=== PATIENT | male | born 1985 | race Hispanic/Latino ===

== ENCOUNTER 2020-02-01 16:29 | Inpatient (IN) | payer OTHER, SELFPAY ==
--- NOTE | ~2020-02-01 | XR_ITS ---
EXAMINATION: XR chest 1V portable 02/01/2020 19:48 INDICATION: Tachycardia. History of CHF. PROCEDURE: AP portable chest COMPARISON: No prior studies for comparison. FINDINGS: The lungs are clear. Cardiomegaly. Defibrillator lead in expected position. There are no pl eural effusions. There is no pneumothorax suspected. IMPRESSION: 1: NO ACUTE CARDIOPULMONARY DISEASE. Reviewed, dictated and finalized at location A.
[2020-02-01 16:46] VITALS: BP 120/80; PULSE 121; RESP 18; TEMP 36.4; O2SAT 100
[2020-02-01 16:53] LABS: Glucose Point of Care > 500 (65-105)
[2020-02-01 16:59] LABS: Basophils Absolute Auto 0.1 K/mm3 (0.0-0.1); Basophils Percent Auto 1.3 % (0.2-1.2); Eosinophils Percent Auto 0.7 % (0-4.4); Hematocrit 46.3 % (42.0-52.0); Hemoglobin 15.5 g/dL (14.0-18.0); Immature Granulocyte Absolute 0.03 K/mm3 (0.00-0.031); Immature Granulocyte Percent A 0.5 % (0-0.5); Lymphocytes Absolute Auto 1.45 K/mm3 (0.9-3.2); Lymphocytes Percent Auto 23.9 % (18.3-44.2); Mean Corpuscular HGB Conc 33.5 g/dl (32-36); Mean Corpuscular Volume 77.7 fl (80-100); Mean Platelet Volume 11.8 fl (7.4-10.4); Monocytes Absolute Auto 0.7 K/mm3 (0.1-0.6); Monocytes Percent Auto 10.9 % (2.6-8.5); Neutrophils Absolute Auto 3.8 K/mm3 (1.3-6.7); Neutrophils Percent Auto 62.7 % (45.5-73.1); Platelet Count Result 280 k/mm3 (150-375); Red Blood Count 5.96 M/mm3 (4.6-6.20); Red Cell Distribution Width 15.4 % (11.5-14.5); White Blood Count 6.1 K/mm3 (4.5-10.0)
[2020-02-01 17:12] LABS: Alanine Aminotransferase 24 U/L (4-50); Albumin Level 4.5 g/dL (3.5-5.1); Alkaline Phosphatase 159 U/L (38-126); Aspartate Amino Transferase 23 U/L (17-59); Bilirubin,Total 0.8 mg/dL (0.2-1.3); Blood Urea Nitrogen 11 mg/dL (9-20); Calcium 9.2 mg/dL (8.4-10.2); Carbon Dioxide 11 mmol/L (22-30); Chloride 98 mmol/L (98-107); Estimated CRCL calculation 134 ml/min; Estimated Glomerular Filt Rate > 60; Glucose 567 mg/dL (75-110); Phosphorus 2.9 mg/dL (2.5-4.5); Potassium 3.8 mmol/L (3.4-5.0); Sodium 131 mmol/L (137-145)
[2020-02-01 17:14] LABS: Add Urine Microscopic? YES; Appearance Urine Clear (Clear); Bilirubin Urine Negative (Negative); Blood Urine 1+ (Negative); Color Urine Colorless (Yellow); Glucose Urine UA 3+ mg/dL (Negative); Ketones Urine 2+ mg/dL (Negative); Leukocyte Esterase Ur Negative LEU/UL (Negative); Mucus Urine Rare /lpf; Nitrate Urine Negative (Negative); Protein Urine 1+ mg/dL (Negative); RBC Urine 0-2 /hpf (0-2); Squamous Epithelial Cell Urine Rare /hpf (Few); Urobilinogen Urine Negative mg/dL (<2.0); WBC Urine 0-3 /hpf
[2020-02-01 17:20] LABS: Specific Grav Ur 1.035 (1.001-1.035)
[2020-02-01 17:37] VITALS: BP 138/98; PULSE 116; RESP 17; O2SAT 99
[2020-02-01 17:57] LABS: Beta-Hydroxybutyrate/Acetoacetate 8.29 mmol/L (0.02-0.27)
[2020-02-01 17:58] LABS: Alveolar/Arterial O2 Gradient 24.2 mmHg; Base Excess ABG -14.4 mEq/l (+/-2.0); Fractional Inspired Oxygen 21 %; HCO3 ABG 10.6 mEq/l (22.0-26.0); Oxygen Saturation ABG 96.6 % (95.0-100.0); Oxyhemoglobin 96.2 % THb (90.0-100.0); PO2 ABG 96.9 mmHg (80.0-100.0); PO2 FiO2 Ratio Arterial Blood 4.61 %; Total Hemoglobin 15.5 g/dL (12.0-18.0)
[2020-02-01 18:01] LABS: Device ROOM AIR; Modified Allen's Test Pass; PCO2 ABG 23.9 mmHg (35.0-45.0); Site Drawn RIGHT RADIAL; pH ABG 7.263 (7.350-7.450)
--- NOTE | 2020-02-01 18:13 | ED.GENADULT ---
HPI - General Adult General Chief complaint: Recheck/Abnormal Lab/Rx Stated complaint: high blood sugar Time Seen by Provider: 02/01/20 17:39 History of Present Illness HPI narrative: Patient is 34 y/o male complaining of moderate dizziness for about 1 month. He describes the dizziness as a light-headedness. He states that sometimes eating helps with the dizziness. In addition, he reports dry mouth, frequent urination and blurred vision. He denies any pain. Related Data Home Medications Medication Instructions Recorded Confirmed allopurinol 02/01/20 carvedilol BID 02/01/20 furosemide DAILY 02/01/20 losartan 02/01/20 Allergies Allergy/AdvReac Type Severity Reaction Status Date / Time No Known Allergies Allergy Verified 02/01/20 18:16 Review of Systems Constitutional: Constitutional: Denies chills, Denies fever(s), Denies headache(s), Reports lethargy and Reports weakness Eyes: Eyes: Reports blurry vision ENT: Denies headache(s) and Denies neck pain Cardiovascular: Cardiovascular: Denies chest pain and Denies dyspnea Respiratory: Respiratory: Denies cough and Denies dyspnea Gastrointestinal: Gastrointestinal: Denies abdominal pain, Denies diarrhea, Reports nausea and Reports vomiting Genitourinary: Genitourinary: Denies hematuria, Denies dysuria and Reports urinary frequency Musculoskeletal: Musculoskeletal: Denies back pain and Denies neck pain Neurologic: Denies headache(s) and Denies weakness [facility] Past Medical History Medical History (Updated 02/01/20 @ 19:45 by Zion Tai MD) CHF (congestive heart failure) Pacemaker Family History Family History (Updated 02/01/20 @ 19:39 by Zion Tai MD) Other Diabetes mellitus Social History Social History Gender identity (if verbalized by the patient): Male Exam Const: General: no acute distress and well developed Orientation/consciousness: oriented to person, oriented to place, oriented to time and patient oriented x3 HENMT: Head: normocephalic Ears: external ears normal General nose exam: Normal external nose present Eyes: General: appearance normal, both eyes and all related structures Conjunctivae: conjunctivae normal Neck: Neck: normal visual inspection and full ROM Chest: Chest palpation & inspection: normal inspection of the chest and no tenderness Resp: Effort & Inspection: normal respiratory effort Auscultation: clear to auscultation bilaterally Cardio: Rate: tachycardic Rhythm: regular rhythm GI: GI Palp: No abdominal tenderness and Yes Soft to palpation Skin: General skin exam: normal color and turgor normal Neuro: General: oriented to person, oriented to place, oriented to time and patient oriented x3 Cognition (Neuro): normal cognition Extrem: General: normal to inspection, full ROM and no pedal edema Psych: Appearance: grossly normal Mental Status: mental status grossly normal Affect: normal affect Course Consultations Consultation #1: Discussed with ROBERTA Thompson, who agrees to admit to Dr. Fernando. Date: 02/01/20 Time: 18:15 Consultation #2: Discussed with Dr. Good, who agrees to consult. Date: 02/01/20 Time: 19:15 Vital Signs Vital signs: Vital Signs Temperature 36.4 C L 02/01/20 16:46 Pulse Rate 121 H 02/01/20 16:46 Respiratory Rate 18 02/01/20 16:46 Blood Pressure 120/80 02/01/20 16:46 Pulse Oximetry 100 02/01/20 16:46 Temperature 36.4 C L 02/01/20 16:46 Pulse Rate 114 H 02/01/20 19:17 Respiratory Rate 22 H 02/01/20 19:17 Blood Pressure 138/87 02/01/20 19:17 Pulse Oximetry 100 02/01/20 19:17 Medical Decision Making Vital Signs Vital Signs: Vital Signs Temperature 36.4 C L 02/01/20 16:46 Pulse Rate 121 H 02/01/20 16:46 Respiratory Rate 18 02/01/20 16:46 Blood Pressure 120/80 02/01/20 16:46 Pulse Oximetry 100 02/01/20 16:46 Temperature 36.4 C L 02/01/20 16:46 Pulse Rate
[2020-02-01] MEDS: SODIUM CHLORIDE 0.9% IV 1,000 ML 999 ML IV CONT (18:27)
[2020-02-01] MEDS: INSULIN HUMAN REGULAR (*BKC) 100 UNITS in SODIUM CHLORIDE 0.9% IV 99 ML 10.1 UNITS IV CONT (18:42)
[2020-02-01 19:17] VITALS: BP 138/87; PULSE 114; RESP 22; O2SAT 100
--- NOTE | 2020-02-01 19:23 | PM.IMHP ---
H&P: HPI History of Present Illness Chief complaint: dka Narrative: This is a morbidly obese 34 year old male with known CHF who presented to the hospital with complaints of feeling back over the past month. He has had dizziness, urinary frequency, generalized weakness, nausea, and generalized abdominal discomfort. He has noticed that his symptoms worsened over the past week. On arrival to the ER the patient was found to be in acute DKA w/ an elevated anion gap of 22, positive serum ketones and hyperglycemia w/ blood glucose >500 mg/dl. Currently he denies any chest pain, shortness of breath, fever, chills, coughing, abdominal pain, dysuria, hematuria, diarrhea, rectal bleeding. No other complaints tonight. Review of Systems Review of Systems: All systems reviewed & are unremarkable except as noted in HPI and below PMFSH Past Medical History Medical History CHF (congestive heart failure) Pacemaker Family History Family History Grandparent Diabetes mellitus Other No problems noted. Mother Migraine Social History Social History Smoking status: Never smoker Alcohol intake: never Substance use: never Gender identity (if verbalized by the patient): Male Spiritual care concerns: No Comments past surgical history includes pacemaker placement. Meds Home Medications and Allergies Home Medications Medication Instructions Recorded Confirmed Type allopurinol 300 mg PO DAILY 02/01/20 02/01/20 History aspirin 81 mg PO DAILY 02/01/20 02/01/20 History carvedilol 25 mg BID 02/01/20 02/01/20 History furosemide 80 mg DAILY 02/01/20 02/01/20 History losartan 50 mg PO DAILY 02/01/20 02/01/20 History Allergies Allergy/AdvReac Type Severity Reaction Status Date / Time No Known Allergies Allergy Verified 02/01/20 18:16 Vital Signs Vital Signs - 24 hr 02/01/20 16:46 02/01/20 17:37 02/01/20 19:17 Temperature 36.4 C L Pulse Rate 121 H 116 H 114 H Respiratory Rate 18 17 22 H Blood Pressure 120/80 138/98 H 138/87 Pulse Oximetry 100 99 100 Exam Const: General: cooperative, healthy appearing, alert and awake Nutritional Appearance: obese morbidly obese Orientation/consciousness: patient oriented x3 HENMT: Head: normal to inspection General nose exam: Normal external nose present Face and sinus: normal facial exam Mouth: Yes Normal oral and palatal mucosa present and Yes oropharynx normal Eyes: Pupils: Equal, round and reactive pupils present EOM: EOMs intact bilaterally Neck: Neck: supple and no JVD Thyroid: thyroid normal Lymphatic: lymphadenopathy not noted Resp: Effort & Inspection: normal respiratory effort Auscultation: clear to auscultation bilaterally Cardio: Rate: tachycardic Rhythm: regular rhythm Heart sounds: no murmurs GI: Inspection: normal to inspection Auscultation: normal bowel sounds Skin: General skin exam: normal color and no rashes or lesions noted Neuro: General: patient oriented x3 Cranial nerves: Yes CN's II-XII intact bilaterally and Yes Equal, round and reactive pupils present Speech: normal speech Motor exam (neuro): 5/5 motor strength present throughout Sensory Exam: normal sensation Extrem: General: normal to inspection and no edema Psych: Mental Status: mental status grossly normal Affect: normal affect H&P: Results Labs Labs: Short CBC 02/01/20 Range/Units 16:52 WBC 6.1 (4.5-10.0) K/mm3 Hgb 15.5 (14.0-18.0) g/dL Hct 46.3 (42.0-52.0) % Plt Count 280 (150-375) k/mm3 BMP 02/01/20 16:52 Sodium 131 L Potassium 3.8 Chloride 98 Carbon Dioxide 11 L BUN 11 Creatinine 1.10 Glucose 567 H* Calcium 9.2 Liver Function 02/01/20 Range/Units 16:52 Total Bilirubin 0.8 (0.2-1.3) mg/dL AST 23 (17-59) U/L ALT 24 (4-50) U/L Alkaline Phosp
--- NOTE | 2020-02-01 19:30 | ECG_ITS ---
Measurements Intervals Ledger Rate: 114 P: MT: 0 QRS: 15 QRSD: 104 T: -22 QT: 334 QTc: 461 Interpretive Statements SINUS OR ECTOPIC ATRIAL TACHYCARDIA BORDERLINE ST-T WAVE ABNORMALITY- DIFFUSE LEADS ABNORMAL ECG Electronically Signed On 02-01-2020 20:15:49 CDT by Juan Alberto Thomson D.O.
[2020-02-01 19:51] LABS: Glucose Point of Care 387 (65-105)
[2020-02-01 20:10] LABS: Alveolar/Arterial O2 Gradient 19.3 mmHg; Base Excess ABG -14.5 mEq/l (+/-2.0); Fractional Inspired Oxygen 21 %; HCO3 ABG 10.2 mEq/l (22.0-26.0); Oxygen Content ABG 20.4 %vol (16.0-22.0); Oxygen Saturation ABG 97.1 % (95.0-100.0); Oxyhemoglobin 96.2 % THb (90.0-100.0); PO2 ABG 103.1 mmHg (80.0-100.0); PO2 FiO2 Ratio Arterial Blood 4.91 %
[2020-02-01 20:12] LABS: Device ROOM AIR; Modified Allen's Test Pass; PCO2 ABG 22.8 mmHg (35.0-45.0); Site Drawn RIGHT RADIAL
[2020-02-01] MEDS: SODIUM CHLORIDE 0.9% IV 1,000 ML 150 ML IV CONT (20:26)
[2020-02-01 20:35] LABS: Hemoglobin A1C 13.4 % (<5.7)
[2020-02-01 20:36] LABS: Blood Urea Nitrogen 10 mg/dL (9-20); Calcium 8.6 mg/dL (8.4-10.2); Carbon Dioxide 11 mmol/L (22-30); Chloride 103 mmol/L (98-107); Estimated CRCL calculation 162 ml/min; Estimated Glomerular Filt Rate > 60; Glucose 348 mg/dL (75-110); Potassium 3.1 mmol/L (3.4-5.0); Sodium 134 mmol/L (137-145)
[2020-02-01] MEDS: INSULIN HUMAN REGULAR (*BKC) 100 UNITS in SODIUM CHLORIDE 0.9% IV 99 ML 9.8 UNITS IV CONT (20:38)
--- NOTE | 2020-02-01 21:26 | PC.NURSE ---
[facility] [place] phone number: lavelle meyer [phone] for emergencies
[2020-02-01 21:27] VITALS: BP 111/71; PULSE 112; RESP 20; O2SAT 99
[2020-02-01] MEDS: POTASSIUM CHLORIDE 20 MEQ TABLET 40 MEQ PO (21:39)
[2020-02-01 22:00] VITALS: BP 119/70; PULSE 116; RESP 14; TEMP 36.7; O2SAT 99
--- NOTE | 2020-02-01 22:04 | ADMGEN ---
This patient, Felix Bell, was admitted to Intensive Care Unit-9 02/01/2020 at 2200. Patient/family oriented to hospital policies and general routines including ID bracelet, bed and alarms, visiting hours, pain management, procedures, bathroom and other care routines, personal items, smoking policy, room service/diet, and visiting hours. Valuables list has been completed. Information on how to activate the Rapid Response Team has been discussed. Patient/Family are encouraged to report perceived risks to care and to ask questions if they do not understand what they are told or what they should do.
[2020-02-01 22:23] LABS: Glucose Point of Care 253 (65-105)
[2020-02-01] MEDS: KCL 20 MEQ/D5/0.45% SOD CHL 1,000 ML 150 ML IV CONT (22:24)
[2020-02-02] VITALS (11 sets, daily range): BP systolic 91–137; BP diastolic 58–99; PULSE 83–118; RESP 16–24; TEMP 36.6–37; O2SAT 96–100; BMI 52.9
[2020-02-02 00:13] LABS: Glucose Point of Care 271 (65-105)
[2020-02-02 00:13] LABS: Glucose Point of Care 255 (65-105)
[2020-02-02 01:08] LABS: Glucose Point of Care 249 (65-105)
[2020-02-02 01:08] LABS: Blood Urea Nitrogen 9 mg/dL (9-20); Calcium 8.5 mg/dL (8.4-10.2); Carbon Dioxide 16 mmol/L (22-30); Chloride 106 mmol/L (98-107); Estimated CRCL calculation 181 ml/min; Estimated Glomerular Filt Rate > 60; Glucose 246 mg/dL (75-110); Potassium 3.2 mmol/L (3.4-5.0); Sodium 133 mmol/L (137-145)
[2020-02-02 02:12] LABS: Glucose Point of Care 214 (65-105)
[2020-02-02 03:05] LABS: Glucose Point of Care 192 (65-105)
[2020-02-02] MEDS: INSULIN HUMAN REGULAR (*BKC) 100 UNITS in SODIUM CHLORIDE 0.9% IV 99 ML 11.1 UNITS IV CONT (03:46)
[2020-02-02 03:50] LABS: Glucose Point of Care 183 (65-105)
[2020-02-02 04:49] LABS: Basophils Percent Auto 0.8 % (0.2-1.2); Eosinophils Absolute Auto 0.1 K/mm3 (0-0.3); Eosinophils Percent Auto 2.1 % (0-4.4); Hematocrit 39.7 % (42.0-52.0); Hemoglobin 13.5 g/dL (14.0-18.0); Immature Granulocyte Absolute 0.02 K/mm3 (0.00-0.031); Immature Granulocyte Percent A 0.4 % (0-0.5); Lymphocytes Absolute Auto 1.92 K/mm3 (0.9-3.2); Lymphocytes Percent Auto 39.5 % (18.3-44.2); Mean Corpuscular Volume 76.5 fl (80-100); Mean Platelet Volume 11.1 fl (7.4-10.4); Monocytes Absolute Auto 0.6 K/mm3 (0.1-0.6); Monocytes Percent Auto 12.3 % (2.6-8.5); Neutrophils Absolute Auto 2.2 K/mm3 (1.3-6.7); Neutrophils Percent Auto 44.9 % (45.5-73.1); Platelet Count Result 202 k/mm3 (150-375); Red Blood Count 5.19 M/mm3 (4.6-6.20); Red Cell Distribution Width 14.6 % (11.5-14.5); White Blood Count 4.9 K/mm3 (4.5-10.0)
[2020-02-02 05:00] LABS: Blood Urea Nitrogen 8 mg/dL (9-20); Calcium 8.3 mg/dL (8.4-10.2); Carbon Dioxide 18 mmol/L (22-30); Chloride 108 mmol/L (98-107); Estimated CRCL calculation 204 ml/min; Estimated Glomerular Filt Rate > 60; Glucose 194 mg/dL (75-110); Sodium 135 mmol/L (137-145)
[2020-02-02 05:03] LABS: Glucose Point of Care 171 (65-105)
[2020-02-02] MEDS: KCL 20 MEQ/D5/0.45% SOD CHL 1,000 ML 150 ML IV CONT ×2 (05:07→11:53)
[2020-02-02 06:07] LABS: Glucose Point of Care 185 (65-105)
[2020-02-02 07:03] LABS: Glucose Point of Care 172 (65-105)
[2020-02-02 08:08] LABS: Glucose Point of Care 186 (65-105)
[2020-02-02] MEDS: ENOXAPARIN 40 MG/0.4 ML SYRINGE SUB-Q (08:10)
[2020-02-02 09:07] LABS: Glucose Point of Care 164 (65-105)
[2020-02-02 09:10] LABS: Blood Urea Nitrogen 8 mg/dL (9-20); Calcium 8.1 mg/dL (8.4-10.2); Carbon Dioxide 20 mmol/L (22-30); Chloride 106 mmol/L (98-107); Estimated CRCL calculation 201 ml/min; Estimated Glomerular Filt Rate > 60; Glucose 155 mg/dL (75-110); Potassium 3.2 mmol/L (3.4-5.0); Sodium 134 mmol/L (137-145)
--- NOTE | 2020-02-02 09:38 | WPDCNINT ---
Assessment and Plan Assessment and plan (1) DKA (diabetic ketoacidoses): Qualifiers: Diabetes mellitus type: other specified (including YOLI) Diabetes mellitus complication detail: without coma Qualified Code(s): E13.10 - Other specified diabetes mellitus with ketoacidosis without coma Code(s): E11.10 - Type 2 diabetes mellitus with ketoacidosis without coma Status: Acute Assessment and Plan: Patient presented with nausea, vomiting, abdominal discomfort, generalized weakness, increased thirst, increased urinary frequency, was diagnosed with DKA in the ED, fluids given, started on insulin infusion on DKA protocol and transfer the ICU. -anion gap has closed but CO2 remains elevated, will give additional fluid bolus of 500 mL as patient has history of CHF with EF of 50% -likely will transition to long-acting insulin sliding scale insulin after next blood draw -NPO for now except ice chips and sips of water -hemoglobin A1c is 13.4 this admission (2) Acute dehydration: Code(s): E86.0 - Dehydration Status: Acute Assessment and Plan: Patient with acute dehydration likely related to increased urinary frequency, diabetic ketoacidosis, will continue to monitor urine output, renal function electrolytes Replace potassium (3) CHF (congestive heart failure): Qualifiers: Heart failure type: unspecified Heart failure chronicity: chronic Qualified Code(s): I50.9 - Heart failure, unspecified Code(s): I50.9 - Heart failure, unspecified Status: Chronic Assessment and Plan: Patient states he has had a echocardiogram a few months ago on in [address] [place] [address] and they had stated that his EF is 50%. -patient does take aspirin, carvedilol, furosemide and losartan at home -will restart with patient's starts p.o. diet (4) Morbid obesity: Code(s): E66.01 - Morbid (severe) obesity due to excess calories Status: Chronic Assessment and Plan: Counseled patient for loss of weight and exercise (5) DVT prophylaxis: Code(s): Z29.9 - Encounter for prophylactic measures, unspecified Status: Acute Assessment and Plan: SCD Additional Plan Discussed with patient updated with his condition and plan of care. I answered all questions. Code status: Full code Critical care time spent: 39 minutes Due to a high probability of clinically significant, life threatening deterioration, the patient required my highest level of preparedness to intervene emergently and I personally spent this critical care time directly and personally managing the patient. This critical care time included obtaining a history; examining the patient; pulse oximetry; ordering and review of studies; arranging urgent treatment with development of a management plan; evaluation of patient's response to treatment; frequent reassessment; and discussions with other providers. It was exclusive of separately billable procedures and treating other patients and teaching time. Please see Assessment and Plan section and the rest of the note for further information on patient assessment and treatment [employer] Teacher Consult Note Consult date: 02/02/20 Time Seen: 07:01 Reason for consult: Diabetic ketoacidosis, nausea, vomiting, abdominal discomfort, increased urinary frequency, generalized weakness HPI: Felix Bell is a 34 year old male with past medical history of congestive heart failure with EF of 50% per patient, history of pacemaker presented to the ED on 02/01/2020 with complains of nausea, vomiting, abdominal discomfort, dizziness, increased urinary frequency and generalized weakness along with increased thirst. These have been going on for almost a month but have worsened over the last week. In the ED patient was found to have elevated blood sugars, and an gap of 22, positive serum ketones and elevated beta hydroxybutyrate. Patient was diagnosed with DKA. Given IV fluids and started on insulin infus
[2020-02-02 10:08] LABS: Glucose Point of Care 189 (65-105)
[2020-02-02] MEDS: INSULIN DETEMIR 100 UNITS/ML 30 UNITS SUB-Q ×2 (11:03→20:21)
[2020-02-02] MEDS: LACTATED RINGERS 500 ML 999 ML IV CONT (11:04)
[2020-02-02 11:21] LABS: Glucose Point of Care 214 (65-105)
--- NOTE | 2020-02-02 11:31 | PM.IMPN ---
Progress Note: A&P Assessment and Plan (1) DKA (diabetic ketoacidoses): Qualifiers: Diabetes mellitus complication detail: without coma Diabetes mellitus type: other specified (including YOLI) Qualified Code(s): E13.10 - Other specified diabetes mellitus with ketoacidosis without coma Code(s): E11.10 - Type 2 diabetes mellitus with ketoacidosis without coma Status: Acute Assessment and Plan: DKA secondary to new onset diabetes mellitus. Patient admitted to ICU. He was started on IV fluids and IV insulin. Anion gap is closed. Patient being transition subcu insulin this morning. Stop IV fluids given his history of heart failure. Appreciate bed maker input. (2) Diabetes mellitus: Code(s): E11.9 - Type 2 diabetes mellitus without complications Status: Acute Assessment and Plan: Patient newly diagnosed with diabetes. A1c 13.4. Being transition to subcu insulin. Dietitian and clinical systems educator consult. (3) Acute dehydration: Code(s): E86.0 - Dehydration Status: Acute Assessment and Plan: Related to above. BUN and creatinine normal. Continue to monitor. (4) CHF (congestive heart failure): Qualifiers: Heart failure chronicity: chronic Heart failure type: unspecified Qualified Code(s): I50.9 - Heart failure, unspecified Code(s): I50.9 - Heart failure, unspecified Status: Chronic Assessment and Plan: Currently compensated. Resume home Coreg but hold Lasix and Losartan due to soft BP. Place parameters on the Coreg. (5) Morbid obesity: Code(s): E66.01 - Morbid (severe) obesity due to excess calories Status: Chronic Assessment and Plan: Healthy lifestyle choices were encouraged and have been discussed with the patient. (6) DVT prophylaxis: Code(s): Z29.9 - Encounter for prophylactic measures, unspecified Status: Acute Assessment and Plan: Lovenox Subjective Date/time seen: 02/02/20 11:31 Interval history: 34yo male with hx of CHF and PM placement here for polydipsia, nausea and vomiting and found to have DKA. No personal history of diabetes but big family history of diabetes. Feels better overall. Abdominal pain is better today. No nausea. He has not eaten yet however. No chest pain or shortness of breath. Exam Narrative: Exam Narrative: AF 107/66 87 17 97% ra Gen - NARD Chest - CTA bilaterally, nml RR CV - RRR S1/S2 Abd - Soft, obese, NT Ext - No pedal edema Psych - Nml mood and affect Skin - Warm and dry Objective Data Vital Signs Vital Signs: Vital Signs - 24 hr 02/01/20 16:46 02/01/20 17:37 02/01/20 19:17 Temperature 97.5 F L Pulse Rate 121 H 116 H 114 H Respiratory Rate 18 17 22 H Blood Pressure 120/80 138/98 H 138/87 Pulse Oximetry 100 99 100 02/01/20 21:27 02/01/20 22:00 02/02/20 00:00 Temperature 98.1 F Pulse Rate 112 H 116 H 99 Respiratory Rate 20 14 24 H Blood Pressure 111/71 119/70 91/64 L Pulse Oximetry 99 99 97 02/02/20 02:00 02/02/20 04:00 02/02/20 06:00 Temperature 98.3 F Pulse Rate 99 104 H 87 Respiratory Rate 20 22 H 17 Blood Pressure 102/73 110/76 107/66 Pulse Oximetry 96 100 97 Intake/Output Intake/Output: Intake & Output 01/30/20 01/31/20 02/01/20 02/02/20 23:59 23:59 23:59 23:59 Intake Total 1450 1113 Output Total 400 Balance 1450 713 Meds/Results Medications: Active Medications Generic Name Dose Route Start Last Admin Trade Name Freq PRN Reason Stop Dose Admin Dextrose 12.5 gm 02/02/20 10:37 Dextrose 50% Syringe IV PUSH PRN PRN Hypoglycemia Protocol Enoxaparin Sodium 40 mg 02/02/20 09:00 02/02/20 08:10 Lovenox SUB-Q 40 mg DAILY TRU Administration Glucagon 1 mg 02/02/20 10:37 Glucagon For Inj IM PRN PRN Hypoglycemia Protocol Glucose 15 gm 02/02/20 10:37 Glutose 15 PO PRN PRN Hypogl
--- NOTE | 2020-02-02 11:55 | PC.NURSE ---
noon insulin not given as pt is still on insulin drip.
[2020-02-02] MEDS: INSULIN HUMAN REGULAR (*BKC) 100 UNITS in SODIUM CHLORIDE 0.9% IV 99 ML 17.4 UNITS IV CONT (12:15)
[2020-02-02 12:20] LABS: Glucose Point of Care 194 (65-105)
[2020-02-02 13:17] LABS: Glucose Point of Care 208 (65-105)
[2020-02-02 14:12] LABS: Blood Urea Nitrogen 7 mg/dL (9-20); Calcium 8.6 mg/dL (8.4-10.2); Carbon Dioxide 19 mmol/L (22-30); Chloride 107 mmol/L (98-107); Estimated CRCL calculation 201 ml/min; Estimated Glomerular Filt Rate > 60; Glucose 187 mg/dL (75-110); Potassium 3.4 mmol/L (3.4-5.0); Sodium 136 mmol/L (137-145)
--- NOTE | 2020-02-02 16:20 | PC.NURSE ---
This patient, Felix Bell, was transferred to [facility] on 02/02/20 at 1610. Personal belongings sent with patient. Belongings list checked and signed with receiving RN. Report given to Denita POWELL. Appropriate documentation sent with patient.
--- NOTE | 2020-02-02 16:29 | PC.NURSE ---
This patient, Felix Bell, was received from [ICU ] on 02/02/20 at 1610. Personal belongings list checked and signed. Patient/family oriented to unit policies and routines
[2020-02-02] MEDS: INSULIN ASPART (*BKC) 100 UNITS/ML SUB-Q (17:43)
[2020-02-02 19:00] LABS: Glucose Point of Care 292 (65-105)
[2020-02-02] MEDS: carvediloL 25 MG TABLET PO (20:19)
[2020-02-02 20:33] LABS: Glucose Point of Care 356 (65-105)
[2020-02-03 06:00] VITALS: BP 107/52; PULSE 93; RESP 20; TEMP 36.3; O2SAT 100
[2020-02-03 06:18] LABS: Basophils Percent Auto 0.6 % (0.2-1.2); Eosinophils Absolute Auto 0.1 K/mm3 (0-0.3); Eosinophils Percent Auto 1.2 % (0-4.4); Hematocrit 37.5 % (42.0-52.0); Hemoglobin 12.7 g/dL (14.0-18.0); Immature Granulocyte Absolute 0.03 K/mm3 (0.00-0.031); Immature Granulocyte Percent A 0.6 % (0-0.5); Lymphocytes Absolute Auto 2.18 K/mm3 (0.9-3.2); Lymphocytes Percent Auto 44.9 % (18.3-44.2); Mean Corpuscular HGB Conc 33.9 g/dl (32-36); Mean Corpuscular Hemoglobin 25.9 pg (26-34); Mean Corpuscular Volume 76.4 fl (80-100); Mean Platelet Volume 11.5 fl (7.4-10.4); Monocytes Absolute Auto 0.5 K/mm3 (0.1-0.6); Monocytes Percent Auto 11.1 % (2.6-8.5); Neutrophils Percent Auto 41.6 % (45.5-73.1); Platelet Count Result 177 k/mm3 (150-375); Red Blood Count 4.91 M/mm3 (4.6-6.20); Red Cell Distribution Width 14.9 % (11.5-14.5); White Blood Count 4.9 K/mm3 (4.5-10.0)
[2020-02-03 06:37] LABS: Potassium 3.3 mmol/L (3.4-5.0)
--- NOTE | 2020-02-03 06:43 | PC.NURSE ---
Outpatient referral for Initial DSMT and MNT started. [facility]. Patient has no PCP.
[2020-02-03 06:44] LABS: Albumin Level 3.3 g/dL (3.5-5.1); Blood Urea Nitrogen 7 mg/dL (9-20); Calcium 8.3 mg/dL (8.4-10.2); Carbon Dioxide 19 mmol/L (22-30); Chloride 105 mmol/L (98-107); Estimated CRCL calculation 205 ml/min; Estimated Glomerular Filt Rate > 60; Glucose 292 mg/dL (75-110); Phosphorus 1.9 mg/dL (2.5-4.5); Sodium 135 mmol/L (137-145)
[2020-02-03 08:30] LABS: Glucose Point of Care 300 (65-105)
[2020-02-03] MEDS: POTASSIUM CHLORIDE 20 MEQ TABLET PO (08:46)
[2020-02-03] MEDS: INSULIN ASPART (*BKC) 100 UNITS/ML SUB-Q ×3 (08:46→18:01)
[2020-02-03 08:47] VITALS: PULSE 70
[2020-02-03] MEDS: carvediloL 25 MG TABLET PO (08:47)
[2020-02-03] MEDS: ASPIRIN 81 MG CHEWABLE TABLET PO (08:48)
[2020-02-03] MEDS: ENOXAPARIN 40 MG/0.4 ML SYRINGE SUB-Q (08:49)
[2020-02-03] MEDS: allopurinoL 300 MG TABLET PO (08:49)
[2020-02-03] MEDS: INSULIN DETEMIR 100 UNITS/ML 35 UNITS SUB-Q (08:49)
[2020-02-03 11:20] VITALS: BMI 54.8
[2020-02-03 12:30] LABS: Glucose Point of Care 359 (65-105)
[2020-02-03 14:00] VITALS: BP 112/57; PULSE 101; RESP 18; TEMP 36.7; O2SAT 99
[2020-02-03 17:06] LABS: Glucose Point of Care 362 (65-105)
--- NOTE | 2020-02-03 17:18 | PM.DS ---
DS: Admitting Diagnosis Admitting Diagnosis Admitting Diagnosis: Other specified diabetes mellitus with ketoacidosis without coma DS: Discharge Diagnosis Discharge Diagnosis (1) DKA (diabetic ketoacidoses): Qualifiers: Diabetes mellitus complication detail: without coma Diabetes mellitus type: other specified (including YOLI) Qualified Code(s): E13.10 - Other specified diabetes mellitus with ketoacidosis without coma Code(s): E11.10 - Type 2 diabetes mellitus with ketoacidosis without coma Status: Acute Assessment and Plan: DKA secondary to new onset diabetes mellitus. Patient admitted to ICU. He was started on IV fluids and IV insulin. Anion gap closed. Patient transition to subcu insulin. (2) Diabetes mellitus: Code(s): E11.9 - Type 2 diabetes mellitus without complications Status: Acute Assessment and Plan: Patient newly diagnosed with diabetes. A1c 13.4. Started on Levemir and glucose improved but still elevated. Invokana and Metformin added. Dietitian and outreach educator worked with patient as well. All questions answered. (3) Acute dehydration: Code(s): E86.0 - Dehydration Status: Acute Assessment and Plan: Related to above. BUN and creatinine normal. Continue to monitor. (4) CHF (congestive heart failure): Qualifiers: Heart failure chronicity: chronic Heart failure type: unspecified Qualified Code(s): I50.9 - Heart failure, unspecified Code(s): I50.9 - Heart failure, unspecified Status: Chronic Assessment and Plan: Currently compensated. We were able to resume Coreg. Lasix and Losartan remained on hold due to soft BP. (5) Morbid obesity: Code(s): E66.01 - Morbid (severe) obesity due to excess calories Status: Chronic Assessment and Plan: Healthy lifestyle choices were encouraged and have been discussed with the patient. DS: Summary Hospital Course Reason for hospitalization: 34yo male here for polyuria, dizziness and found to have DKA and newly diagnosed DM. Please see H&P for details. Hospital Course: As above Time Spent with Patient Time attestation: Total time spent providing and/or coordinating discharge services:35 minutes Time spent: Greater than 30 minutes Specific discharge activities: Long discussion about diabetic treatment. Exam Narrative: Exam Narrative: Complains that feet become warm after Levemir lasting about 5 minutes. No rash or SOB. No CP. AF 112/57 101 18 99% ra Gen - NARD Chest - CTA bilaterally, nml RR CV - RRR S1/S2 Abd - Soft, obese, NT Ext - No pedal edema Psych - Nml mood and affect Skin - Warm and dry DS: Data Data Completed and Pending Labs on day of discharge: Labs from last 24 hours 02/03/20 02/03/20 02/03/20 17:02 12:27 08:23 WBC RBC Hgb Hct MCV MCH MCHC RDW Plt Count MPV Immature Gran % (Auto) Neut % (Auto) Lymph % (Auto) Leslie % (Auto) Eos % (Auto) Baso % (Auto) Lymph # (Auto) Leslie # (Auto) Eos # (Auto) Baso # (Auto) Abs Immat Gran (auto) Absolute Neuts (auto) Absolute Nucleated RBC Nucleated RBC % Sodium Potassium Chloride Carbon Dioxide BUN Creatinine Estim Creat Clear Calc Estimated GFR Glucose POC Capillary Glucose 362 H 359 H 300 H Calcium Phosphorus Magnesium Albumin 02/03/20 02/03/20 02/02/20 05:40 05:40 20:17 WBC 4.9 RBC 4.91 Hgb 12.7 L Hct 37.5 L MCV 76.4 L MCH 25.9 L MCHC 33.9 RDW 14.9 H Plt Count 177 MPV 11.5 H Immature Gran % (Auto) 0.6 H Neut % (Auto) 41.6 L Lymph % (Auto) 44.9 H Leslie % (Auto) 11.1 H Eos % (Auto) 1.2 Baso % (Auto) 0.6 Lymph # (Auto) 2.18 Leslie # (Auto) 0.5 Eos # (Auto) 0.1 Baso # (Auto) 0.0 Abs Immat Gran (auto) 0.03 Absolute Neuts (auto) 2.0 Absol
== END 2020-02-03 19:00 | disposition home or self-care (01) | DRG 638 ==
LOC: ANHED 19:45 → ANHICU 22:47 → ANH3MEDSUR 02-03 17:40 → ANHICU 02-05 14:50
PROVIDERS: Emergency Medicine; Family Medicine; Internal Medicine; Admitting Provider Family Medicine; Emergency Provider Emergency Medicine; Visit Provider Internal Medicine
DX: E11.10 Type 2 diabetes mellitus with ketoacidosis without coma (principal); Z68.43 Body mass index [BMI] 50.0-59.9, adult; I50.9 Heart failure, unspecified; E66.01 Morbid (severe) obesity due to excess calories; E86.0 Dehydration
CPT/HCPCS: 36415; 36600; 71045; 80048; 80053; 80069; 81001; 82010; 82805; 82948; 83036; 83735; 84100; 85025; 93005; 96361; 96365; 96376; 99291; A9270; J1650; J1815; J3480; J7030; J7120